=== PATIENT | male | born 1970 | race Caucasian/White ===

== ENCOUNTER 2019-08-14 11:50 | Emergency (ER) | payer MEDICARE ==
[2019-08-14] MEDS ORDERED: ONDANSETRON HCL 4 MG/2 ML VIAL ONE (12:21)
[2019-08-14] MEDS ORDERED: SODIUM CHLORIDE 0.9% 1000ML 1,000 ML IV ONE (12:21)
[2019-08-14] MEDS ORDERED: FAMOTIDINE/PF 20 MG/2 ML VIAL IV ONE (12:21)
[2019-08-14 12:53] LABS: BASOPHILS % (AUTO) 0.9 % (0.0-5.0); EOSINOPHILS % (AUTO) 1.3 % (0.0-8.0); HEMATOCRIT 41.6 % (42-54); LYMPHOCYTES % (AUTO) 30.1 % (21.0-51.0); MEAN CORPUSCULAR HEMOGLOBIN 31.1 pg (27.0-33.0); MEAN CORPUSCULAR HGB CONC 32.9 g/dL (32.0-36.0); MEAN CORPUSCULAR VOLUME 94.5 fL (79-99); MONOCYTES % (AUTO) 13.7 % (3.0-13.0); NEUTROPHILS % (AUTO) 53.6 % (40.0-77.0); PLATELET COUNT (AUTO) 221 K/uL (130-400); RED CELL DISTRIBUTION WIDTH 14.8 % (11.0-15.5); WHITE BLOOD COUNT (AUTO) 6.9 K/uL (4.8-10.8)
[2019-08-14 13:08] LABS: CREATININE 0.9 mg/dL (0.5-1.5)
[2019-08-14 13:12] LABS: ALBUMIN 3.5 g/dL (3.5-5.0); BILIRUBIN,TOTAL 0.4 mg/dL (0.2-1.0); TOTAL PROTEIN, SERUM 8.4 g/dL (6.0-8.3)
[2019-08-14] MEDS ORDERED: LIDOCAINE HCL 2% VISCOUS 15 ML UDCUP ONE ×2 (13:30→16:43)
[2019-08-14] MEDS ORDERED: IOHEXOL-350 75 ML VIAL IV ONE (14:36)
[2019-08-14] MEDS ORDERED: FLUCONAZOLE 100 MG TAB ONE (16:44)
[2019-08-22] MEDS ORDERED: PANT40TA25 PO (05:44)
== END 2019-08-14 17:52 | disposition home or self-care (01) ==
LOC: EDH 11:50
DX: B37.0 Candidal stomatitis (principal); B37.81 Candidal esophagitis; R11.10 Vomiting, unspecified; F32.9 Major depressive disorder, single episode, unspecified; K21.9 Gastro-esophageal reflux disease without esophagitis; Z88.1 Allergy status to other antibiotic agents; Z88.0 Allergy status to penicillin
CPT/HCPCS: 36415; 74177; 80053; 83690; 85025; 87804 ×2; 93005; 96361; 96374; 96375; 99285; J2405; J3490; J7030; Q9967

== ENCOUNTER 2019-08-21 14:51 | Inpatient (IN) | payer MEDICARE ==
[~2019-08-21] VITALS: Ht 165.1 cm; Wt 99.6 kg
[2019-08-21 15:23] LABS: BASOPHILS % (AUTO) 0.7 % (0.0-5.0); EOSINOPHILS % (AUTO) 0.8 % (0.0-8.0); LYMPHOCYTES % (AUTO) 26.5 % (21.0-51.0); MEAN CORPUSCULAR HEMOGLOBIN 31.1 pg (27.0-33.0); MEAN CORPUSCULAR VOLUME 91.3 fL (79-99); MONOCYTES % (AUTO) 7.3 % (3.0-13.0); NEUTROPHILS % (AUTO) 64.5 % (40.0-77.0); PLATELET COUNT (AUTO) 305 K/uL (130-400); RED CELL DISTRIBUTION WIDTH 14.8 % (11.0-15.5); WHITE BLOOD COUNT (AUTO) 8.7 K/uL (4.8-10.8)
[2019-08-21 15:38] LABS: CREATININE 0.9 mg/dL (0.5-1.5); POTASSIUM 3.8 mmol/L (3.5-5.1)
[2019-08-21 15:43] LABS: ALBUMIN 3.8 g/dL (3.5-5.0); BILIRUBIN,TOTAL 0.5 mg/dL (0.2-1.0); TOTAL PROTEIN, SERUM 7.9 g/dL (6.0-8.3)
[2019-08-21] MEDS ORDERED: ONDANSETRON HCL 4 MG/2 ML VIAL ONE ×2 (15:55→20:55)
[2019-08-21] MEDS ORDERED: SODIUM CHLORIDE 0.9% 1000ML 1,000 ML IV ONE (15:55)
[2019-08-21] MEDS ORDERED: HYDRALAZINE HCL 20 MG/ML VIAL IV PRN (17:15)
[2019-08-21] MEDS ORDERED: ACETAMINOPHEN 325 MG TAB PO PRN ×2 (17:15)
[2019-08-21] MEDS ORDERED: FLUCONAZOLE 200 MG/NS 100 ML 100 ML ONE (17:37)
[2019-08-21] MEDS ORDERED: 1/2 NORMAL SALINE 1,000 ML IV ONE (17:38)
[2019-08-21 18:50] VITALS: BP 130/73
[2019-08-21 20:15] LABS: PHOSPHORUS 3.1 mg/dL (2.5-4.9)
[2019-08-21] MEDS: FAMOTIDINE/PF 20 MG/2 ML VIAL IV SCH (20:57)
[2019-08-21] MEDS: LACTULOSE 20 GM/30 ML UDCUP PO SCH (20:57)
[2019-08-21] MEDS: 1/2 NORMAL SALINE 1,000 ML IV SCH (21:00)
[2019-08-22] VITALS (7 sets, daily range): BP systolic 121–141; BP diastolic 59–87
--- NOTE | 2019-08-22 01:00 | NUR ---
AWARE PT HAS BEEN HAVING VOMITING AND NAUSEA REGARDLESS OF ZOFRAN AND HAS HAD THIS ISSUE PER ER NOTES AND PROVIDER AND NURSE NILS FROM NURSING ASSISTED FOR THE LAST COUPLE OF WEEKS STATED NO KUB , INSTEAD DO A CT ABD/PELVIS W NO CONTRAST AND KEEP PT NPO
[2019-08-22] MEDS ORDERED: PROMETHAZINE HCL 25 MG/ML 1ML AMPULE IM PRN (04:15)
[2019-08-22] MEDS ORDERED: PRAV20TA4 PO (05:44)
[2019-08-22] MEDS ORDERED: MAGN400T53 PO (05:44)
[2019-08-22] MEDS ORDERED: DIPH25 PO (05:44)
[2019-08-22] MEDS ORDERED: QUET300T2 PO (05:44)
[2019-08-22] MEDS ORDERED: PANT40TA55 PO (05:44)
[2019-08-22] MEDS ORDERED: CARV12.511 PO (05:44)
[2019-08-22] MEDS ORDERED: MAGN400O17 PO (05:44)
[2019-08-22] MEDS ORDERED: ASPI-556 PO (05:44)
[2019-08-22] MEDS ORDERED: IBUP-2784 PO (05:44)
[2019-08-22] MEDS ORDERED: GUAI237L97 PO (05:44)
[2019-08-22] MEDS ORDERED: DEBROX AU (05:44)
[2019-08-22] MEDS ORDERED: LOPE2CAP PO (05:44)
[2019-08-22] MEDS ORDERED: BISM262T15 PO (05:44)
[2019-08-22] MEDS ORDERED: POTA20TA12 PO (05:44)
[2019-08-22] MEDS ORDERED: VALP250S4 PO (05:44)
[2019-08-22] MEDS ORDERED: HC1C1.5 TP (05:44)
[2019-08-22] MEDS ORDERED: PETR113O TP (05:44)
[2019-08-22] MEDS ORDERED: NEOM30OI18 TP (05:44)
[2019-08-22] MEDS ORDERED: PHEN177S29 PO (05:44)
[2019-08-22] MEDS ORDERED: METR-172 PO (05:44)
[2019-08-22] MEDS ORDERED: BENZ2TAB10 PO (05:44)
--- NOTE | 2019-08-22 08:55 | NUR ---
INDIO FLORES COORDINATED WITH NURSE NORRIS. Pt CURRENTLY NPO SECONDARY TO POSSIBLE OBSTRUCTION. COMMUNITY ADVOCATE WILL CONTINUE TO FOLLOW Pt TO EVALUATE WHEN Pt IS ABLE TO PARTICIPATE. Addendum: 08/22/[address] SYLVIA DURAND Amended: Links added.
[2019-08-22] MEDS: DIVALPROEX SODIUM 250 MG TABLET.DR PO SCH ×2 (08:57→20:07)
[2019-08-22] MEDS: CARVEDILOL 12.5 MG TABLET PO SCH ×2 (08:57→20:07)
[2019-08-22] MEDS: MAGNESIUM OXIDE 400 MG TABLET PO SCH (08:57)
[2019-08-22] MEDS: ASPIRIN 81 MG EC TAB PO SCH (08:58)
[2019-08-22] MEDS: ONDANSETRON HCL 4 MG/2 ML VIAL IVP PRN (09:29)
[2019-08-22] MEDS: FAMOTIDINE/PF 20 MG/2 ML VIAL IV SCH ×2 (09:29→21:00)
[2019-08-22] MEDS: LACTULOSE 20 GM/30 ML UDCUP PO SCH (09:29)
[2019-08-22] MEDS: 1/2 NORMAL SALINE 1,000 ML IV SCH (09:29)
[2019-08-22] MEDS: ENOXAPARIN SODIUM 30 MG/0.3 ML SQ SCH (09:29)
--- NOTE | 2019-08-22 11:50 | NUR ---
SOAP ENEMA #1 GIVEN. PATIENT TOLERATED WELL. WILL CONTINUE TO MONITOR CLOSELY.
[2019-08-22] MEDS: FLUCONAZOLE 200 MG/NS 100 ML 100 ML IV SCH (11:56)
--- NOTE | 2019-08-22 13:41 | NUR ---
RD NOTIFICATION Pt admitted with Intractable N/V, Stool impaction. Pt NPO pending CT of ABD/Pelvis Vs Lactulose/Enema treatments for fecal impaction. Pt is s/p SOAP enema x1. Pending ST analial. Recommend adv diet when medically feasible to General Heart Healthy,GI soft/Opal. RD to continue to monitor. Please notify as additional nutrition concerns arise. Thank you. Addendum: 08/22/19 at [address] Amended: Links added.
[2019-08-22] MEDS ORDERED: HYDROCORTISONE 1% 28.35 GM CREAM TP PRN (14:30)
[2019-08-22] MEDS ORDERED: DIPHENHYDRAMINE HCL 25 MG CAPSULE PO PRN (14:30)
--- NOTE | 2019-08-22 15:30 | NUR ---
PAGED DR ALLEN, WAITING CLEAT FEEDER BACK.
--- NOTE | 2019-08-22 16:13 | NUR ---
SOAP ENEMA #2 GIVEN. PATIENT IS PASSING A BROWNISH/LIZAMA LIQUID, PROBABLY FROM THE ENEMA. PT TOLERATED WELL. NO DISTRESS NOTED. CALL LIGHT WITHIN REACH.
[2019-08-22] MEDS: BENZTROPINE MESYLATE 0.5 MG TAB PO SCH (20:06)
[2019-08-22] MEDS: SIMVASTATIN 20 MG TABLET PO SCH (20:07)
[2019-08-22] MEDS: QUETIAPINE FUMARATE 100 MG TAB PO SCH (20:07)
[2019-08-23] VITALS (21 sets, daily range): BP systolic 107–154; BP diastolic 53–78
[2019-08-23 05:26] LABS: BASOPHILS % (AUTO) 0.9 % (0.0-5.0); EOSINOPHILS % (AUTO) 3.3 % (0.0-8.0); HEMATOCRIT 32.7 % (42-54); LYMPHOCYTES % (AUTO) 46.4 % (21.0-51.0); MEAN CORPUSCULAR HEMOGLOBIN 30.9 pg (27.0-33.0); MEAN CORPUSCULAR HGB CONC 33.6 g/dL (32.0-36.0); MEAN CORPUSCULAR VOLUME 91.9 fL (79-99); NEUTROPHILS % (AUTO) 40.2 % (40.0-77.0); PLATELET COUNT (AUTO) 206 K/uL (130-400); RED BLOOD CELL COUNT(AUTO) 3.56 MIL/uL (4.50-6.20); RED CELL DISTRIBUTION WIDTH 14.7 % (11.0-15.5); WHITE BLOOD COUNT (AUTO) 6.3 K/uL (4.8-10.8)
[2019-08-23 05:43] LABS: CREATININE 0.7 mg/dL (0.5-1.5)
[2019-08-23 05:47] LABS: POTASSIUM 2.9 mmol/L (3.5-5.1)
--- NOTE | 2019-08-23 06:10 | NUR ---
HYPOKALEMIA PT'S K AT 2.9. PAGED DR MCCRACKEN TO INFORM.
[2019-08-23] MEDS ORDERED: LIDOCAINE HCL-MPF 1% 2ML VIAL IV PRN (07:00)
[2019-08-23] MEDS ORDERED: POTASSIUM CHLORIDE 10% ELIXIR 20 MEQ/15 ML UDCUP PO PRN (07:00)
[2019-08-23] MEDS ORDERED: MAGNESIUM 2GM PREMIX 50ML 50 ML IV PRN (07:00)
[2019-08-23] MEDS ORDERED: POTASSIUM CHLORIDE 20 MEQ ERTAB PO PRN (07:00)
[2019-08-23] MEDS ORDERED: POTASSIUM CHLORIDE 20MEQ/100ML 100 ML IV PRN (07:00)
[2019-08-23] MEDS: BENZTROPINE MESYLATE 0.5 MG TAB PO SCH ×2 (09:00→20:48)
[2019-08-23] MEDS: ASPIRIN 81 MG EC TAB PO SCH (09:00)
[2019-08-23] MEDS: ENOXAPARIN SODIUM 30 MG/0.3 ML SQ SCH (09:00)
[2019-08-23] MEDS: FAMOTIDINE/PF 20 MG/2 ML VIAL IV SCH ×2 (09:00→20:48)
[2019-08-23] MEDS: CARVEDILOL 12.5 MG TABLET PO SCH ×2 (09:00→20:47)
[2019-08-23] MEDS: POTASSIUM CHLORIDE 20 MEQ ERTAB PO SCH (09:00)
[2019-08-23] MEDS: DIVALPROEX SODIUM 250 MG TABLET.DR PO SCH ×2 (09:00→20:47)
[2019-08-23] MEDS: MAGNESIUM OXIDE 400 MG TABLET PO SCH (09:00)
[2019-08-23] MEDS: FLUCONAZOLE 200 MG/NS 100 ML 100 ML IV SCH (09:08)
[2019-08-23] MEDS: DEXTROSE 5 % AND 0.9 % NACL 1,000 ML IV SCH ×2 (09:08→21:26)
[2019-08-23] MEDS: POTASSIUM CHLORIDE 20MEQ/100ML 100 ML IV PRN ×3 (09:09→23:52)
[2019-08-23] MEDS: LIDOCAINE HCL-MPF 1% 2ML VIAL IV PRN ×2 (09:09→23:53)
--- NOTE | 2019-08-23 10:05 | NUR ---
INDIO ANTOINE COMPLETED Pt CONTINUES NPO PER NURSE GIRALDO VENETIAN BLIND WASHER WILL CONTINUE TO FOLLOW Pt TO EVALUATE. Addendum: 08/23/[address] SYLVIA DURAND Amended: Links added.
[2019-08-23] MEDS ORDERED: PROPOFOL 10 MG/ML 20ML VIAL IV ONE (10:56)
--- NOTE | 2019-08-23 12:30 | NUR ---
EMESIS X1 I TRIED TO INSTRUCT PATIENT ON CALLING ME WHEN HE FEELS NAUSEATED BUT PATIENT IS UNABLE TO. HIS DOOR IS OPEN AND I HEARD HIM THROW UP SO I WENT IN THE ROOM TO HELP HIM WITH THE EMESIS BAG AND THEN TO CLEAN HIM UP. HE DENIES ANY ABD PAIN BUT I'M UNABLE TO TELL DUE TO HIS DX. WILL CONTINUE TO MONITOR CLOSELY.
[2019-08-23] MEDS: ONDANSETRON HCL 4 MG/2 ML VIAL IVP PRN ×2 (12:42→21:20)
[2019-08-23] MEDS: METOCLOPRAMIDE 10 MG/2 ML VIAL IVP PRN ×2 (12:42→23:52)
--- NOTE | 2019-08-23 12:55 | NUR ---
PATIENT CAME BACK FROM THE EGD. RESULTS REVIEWED BY DR CONNELL. PATIENT WILL START ON CLEAR LIQUIDS AFTER BEING EVALUATED BY SPEECH THERAPIST.
--- NOTE | 2019-08-23 14:40 | NUR ---
NUTRITION EDUCATION Pt with AMS/Mental Retardation as per RN. High Fiber Nutrition Therapy handout placed in Pt chart. RD recommends gradually increase Pt fiber intake by including high or moderate fiber food(s) with each meal, increasing water intake. Pt with frequent aversion to foods, per RN; trial of high fiber smoothies or fiber supplement to prevent reoccurrence of constipation. Please notify as additional nutrition concerns arise. Thank you. Addendum: 08/23/19 at [address] Amended: Links added.
--- NOTE | 2019-08-23 17:06 | NUR ---
SPOKE WITH [facility]- PATIENT HAS LIVES THERE SINCE FEB 2019, HAS MOBILITY ISSUES, USES A WHEELCHAIR, NEEDS ASSISTANCE WITH ALL ADLS- WHEN DISCHARGE, [facility] ST[facility] CAN PROVIDE TRANSPORT- CALL THEM, THEY WILL BRING PATIENTS WHEEL CHAIR AND LIFT VAN. WILL PLACE INFO IN CHART FOR PRIMARY RN Addendum: 08/23/19 at 1709 by GHAZAL CHI RN CM Amended: Links added.
--- NOTE | 2019-08-23 17:09 | NUR ---
DCP TO [facility] WITH [facility] Addendum: 08/23/19 at 1709 by GHAZAL CHI RN CM Amended: Links added.
[2019-08-23] MEDS: SIMVASTATIN 20 MG TABLET PO SCH (20:48)
[2019-08-23] MEDS: QUETIAPINE FUMARATE 100 MG TAB PO SCH (21:06)
[2019-08-24 03:33] VITALS: BP 142/74
[2019-08-24] MEDS: ONDANSETRON HCL 4 MG/2 ML VIAL IVP PRN (04:36)
[2019-08-24 04:46] LABS: CREATININE 0.5 mg/dL (0.5-1.5); MAGNESIUM 2.3 mg/dL (1.80-2.40); POTASSIUM 3.9 mmol/L (3.5-5.1)
[2019-08-24 08:00] VITALS: BP 118/54
[2019-08-24] MEDS ORDERED: ONDANSETRON HCL 4 MG/2 ML VIAL IVP SCH (08:15)
[2019-08-24] MEDS ORDERED: DOCU-116 PO (08:23)
[2019-08-24] MEDS: ENOXAPARIN SODIUM 30 MG/0.3 ML SQ SCH (09:00)
[2019-08-24] MEDS: BENZTROPINE MESYLATE 0.5 MG TAB PO SCH ×2 (09:00→20:52)
[2019-08-24] MEDS: DIVALPROEX SODIUM 250 MG TABLET.DR PO SCH ×2 (09:00→20:52)
[2019-08-24] MEDS: ASPIRIN 81 MG EC TAB PO SCH (09:00)
[2019-08-24] MEDS: PANTOPRAZOLE SODIUM 40 MG TABLET.DR PO SCH (09:00)
[2019-08-24] MEDS: MAGNESIUM OXIDE 400 MG TABLET PO SCH (09:00)
[2019-08-24] MEDS: POTASSIUM CHLORIDE 20 MEQ ERTAB PO SCH (09:00)
[2019-08-24] MEDS: CARVEDILOL 12.5 MG TABLET PO SCH ×2 (09:00→20:52)
--- NOTE | 2019-08-24 09:40 | NUR ---
DYSPHAGIA EVAL ATTEMPTED Pt AWAKE AND ORIENTED TO PERSON. Pt REFUSING TO COOPERATE WITH P.O. TRIALS FOR SWALLOW EVALUATION GIVEN MAX CUES AND SEVERAL OPTIONS (NO P.O. WAS GIVEN AT THIS TIME). PRODUCTION SUPV SPOKE WITH MEERA FROM [facility] AT [phone] TO OBTAIN INFORMATION. Pt WAS ON PUREED AND NECTAR THICK LIQUIDS AT [facility] AND TOLERATING IT WELL. HOWEVER, MEERA SAID THAT Pt WAS ALSO REFUSING P.O. INTAKE THE LAST COUPLE OF DAYS WITH THEM. PRODUCTION SUPV WILL FOLLOW Pt AND EVALUATE WHEN Pt IS ABLE TO PARTICIPATE. Addendum: 08/24/[address] SYLVIA DURAND Amended: Links added.
[2019-08-24] MEDS: DEXTROSE 5 % AND 0.9 % NACL 1,000 ML IV SCH ×3 (10:40→23:26)
[2019-08-24 11:00] VITALS: BP 120/82
[2019-08-24] MEDS: FAMOTIDINE/PF 20 MG/2 ML VIAL IV SCH ×2 (11:22→20:51)
[2019-08-24] MEDS: FLUCONAZOLE 200 MG/NS 100 ML 100 ML IV SCH (11:22)
[2019-08-24] MEDS: METOCLOPRAMIDE 10 MG/2 ML VIAL IVP PRN ×2 (12:56→21:02)
--- NOTE | 2019-08-24 14:27 | NUR ---
RD UPDATE RD NOTIFICATION FOR PPN RECOMMENDATIONS. RECOMMEND CLINIMIX E 4.25/5 @85MLS/HR TO PROVIDE 87GM PROTEIN, [id number]. PT CONTINUES WITH GI SOFT/BLAND DIET ORDER. PT WITH AMS. RECOMMEND APPETITE STIMULANT. RD TO CONTINUE TO MONITOR.
[2019-08-24 16:00] VITALS: BP 128/73
--- NOTE | 2019-08-24 17:09 | NUR ---
PLEASE HAVE [facility] STAFF HELP WITH PT FEEDING IF NEEDED--WHEN NAUSEA CONTROLLED DISCUSSED PT WITH DR. CONNELL TODAY PT DECLINED TO EAT FOR SPEECH THERPAY THIS MONINR- MAYBE SECOND TO UNFMAILIAR STAFF? DISCUSSED WITH NILS MONTE AT [facility]- THEY ARE WILLING OT HAVE STAFF COME OT FEED PATIENT IF NEEDED AFTER THIS WAS DISCUSSED, PATIENT WAS NAUSEATED AGAIN- STAFF COMING TO HELP FEED IS NOW ON HOLD UNTIL NAUSEA IS CONTORLLED. IF REFUSAL TO EAT PERSISTS AFTER NAUSEA/VOMITING STOPS, STAFF CAN BE ASKED TO ASSIST WITH ANY CARE PROBLEMS THAT OCCUR. PLAN IS RETURN TO [facility] WITH HIGH FIBER DIET, BOWEL REGIME NAUSEA/VOMITING RESOLVES, AND GOOD APPETITS. ALL DISCUSSED WITH [facility] STAFF. [facility] STAFF TO PROVIDE TRANSPORT ON DISCHARGE Addendum: 08/24/19 at 1714 by GHAZAL CHI RN CM Amended: Links added.
[2019-08-24] MEDS ORDERED: M.V.I. IV [ADULT] 10 ML in CLINIMIX E 4.25%-5% SOLUTION 2,000 ML IV SCH (18:00)
[2019-08-24 20:10] VITALS: BP 95/49
[2019-08-24] MEDS: SIMVASTATIN 20 MG TABLET PO SCH (20:52)
[2019-08-24] MEDS: QUETIAPINE FUMARATE 100 MG TAB PO SCH (20:52)
--- NOTE | 2019-08-24 20:55 | NUR ---
MEDS SHIFT ASSESSMENT DONE, PLEASE REFER TO CHART. DUE MEDS GIVEN, IV MEDS ADMINISTERED WHILE PO MEDS CRUSHED AND TRIED TO GIVE TO PT BUT REFUSING AT THIS TIME. REGLAN IV ADMINISTERED FOR PREVENTION OF EMESIS BUT PT STILL REFUSES MEDS. WILL TRY TO GIVE ONCE PT IS RELAXED AND CALM. KEPT COMFORTABLE WITH HOB ELEVATED. WILL MONITOR CLOSELY. Addendum: 08/24/19 at 2203 by WILLIAM DELANEY RN RN Amended: Links added.
--- NOTE | 2019-08-24 23:28 | NUR ---
TRY TRIED SEVERAL TIMES TO GIVE CRUSHED MEDS WITH APPLE SAUCE BUT REFUSED. PT WILL NOT OPEN HIS MOUTH FOR MEDS AND KEEPS REPEATING NO.
[2019-08-24 23:44] VITALS: BP 113/68
--- NOTE | 2019-08-25 02:00 | NUR ---
ROUNDS PT FAIRLY ASLEEP WITH RESPIRATIONS EVEN AND UNLABORED. NO DISTRESS NOTED. KEPT RESTED AND COMFORTABLE. WILL MONITOR PT.
[2019-08-25 03:38] VITALS: BP 116/60
--- NOTE | 2019-08-25 04:12 | NUR ---
[facility]ATHE PCP IN AND GAVE PT A BED BATH, TOLERATED ACTIVITY WELL. RE-POSITIONED COMFORTABLY IN BED WITH HOB ELEVATED. WILL MONITOR PT.
[2019-08-25 05:22] LABS: BASOPHILS % (AUTO) 0.7 % (0.0-5.0); EOSINOPHILS % (AUTO) 2.4 % (0.0-8.0); HEMATOCRIT 35.4 % (42-54); LYMPHOCYTES % (AUTO) 38.3 % (21.0-51.0); MEAN CORPUSCULAR HEMOGLOBIN 31.1 pg (27.0-33.0); MEAN CORPUSCULAR HGB CONC 33.9 g/dL (32.0-36.0); MEAN CORPUSCULAR VOLUME 91.7 fL (79-99); NEUTROPHILS % (AUTO) 49.3 % (40.0-77.0); PLATELET COUNT (AUTO) 226 K/uL (130-400); RED BLOOD CELL COUNT(AUTO) 3.86 MIL/uL (4.50-6.20); RED CELL DISTRIBUTION WIDTH 15.1 % (11.0-15.5)
[2019-08-25 05:41] LABS: CREATININE 0.6 mg/dL (0.5-1.5); MAGNESIUM 2.1 mg/dL (1.80-2.40); PHOSPHORUS 3.4 mg/dL (2.5-4.9); POTASSIUM 3.4 mmol/L (3.5-5.1)
[2019-08-25] MEDS: LIDOCAINE HCL-MPF 1% 2ML VIAL IV PRN (06:10)
[2019-08-25] MEDS: POTASSIUM CHLORIDE 20MEQ/100ML 100 ML IV PRN (06:10)
[2019-08-25 08:00] VITALS: BP 116/62
[2019-08-25] MEDS: POTASSIUM CHLORIDE 20 MEQ ERTAB PO SCH (09:00)
[2019-08-25] MEDS: PANTOPRAZOLE SODIUM 40 MG TABLET.DR PO SCH (09:00)
[2019-08-25] MEDS: ASPIRIN 81 MG EC TAB PO SCH (09:00)
[2019-08-25] MEDS: MAGNESIUM OXIDE 400 MG TABLET PO SCH (09:00)
[2019-08-25] MEDS: CARVEDILOL 12.5 MG TABLET PO SCH ×2 (09:00→20:41)
--- NOTE | 2019-08-25 09:11 | NUR ---
RECORDS CALL TO MICHELINE PEREIRA- ASKED FOR RECORDS FROM [facility] IN JUNE- WHAT WORK UP DONW, ETC. STAFF STATES WOULD CALL [facility] / TO CONTACT THIS CM. PT UNABLE TO SIGN FOR RELEASE OF RECORDS. WILL ATTEMPT TO OBTIAN RECORDS PRIOR TO NEUROSURGERY CONSULT - POSS TUESDAY
[2019-08-25] MEDS: FAMOTIDINE/PF 20 MG/2 ML VIAL IV SCH ×2 (10:00→20:41)
[2019-08-25] MEDS: ENOXAPARIN SODIUM 30 MG/0.3 ML SQ SCH (10:00)
[2019-08-25] MEDS: METOCLOPRAMIDE 10 MG/2 ML VIAL IVP PRN ×2 (10:00→16:33)
[2019-08-25] MEDS: BENZTROPINE MESYLATE 0.5 MG TAB PO SCH ×2 (10:01→20:40)
[2019-08-25] MEDS: DIVALPROEX SODIUM 250 MG TABLET.DR PO SCH ×2 (10:01→20:40)
[2019-08-25 11:00] VITALS: BP 126/77
--- NOTE | 2019-08-25 15:24 | NUR ---
[facility] STATES THAT THEY WILL TRY TO GET RECORDS FROM [facility] RE LAST ADMIT IN JUNE- WILL PROBABLY NOT BE AVAILABLE UNTIL TUESDAY CM TO FOLLOW UP AND ASSIST NEEDED
[2019-08-25] MEDS ORDERED: GLYCERIN ADULT SUPP.RECT RC PRN (15:30)
[2019-08-25 16:00] VITALS: BP 129/71
[2019-08-25] MEDS ORDERED: BISACODYL 10 MG SUPP.RECT RC ONE (16:32)
[2019-08-25] MEDS: DEXTROSE 5 % AND 0.9 % NACL 1,000 ML IV SCH (16:35)
[2019-08-25] MEDS ORDERED: M.V.I. IV [ADULT] 10 ML in CLINIMIX E 4.25%-5% SOLUTION 2,000 ML IV ONE (18:00)
[2019-08-25 20:00] VITALS: BP 119/81
[2019-08-25] MEDS: SIMVASTATIN 20 MG TABLET PO SCH (20:39)
[2019-08-25] MEDS: QUETIAPINE FUMARATE 100 MG TAB PO SCH (20:40)
[2019-08-26] VITALS: BP 107/69
[2019-08-26 04:00] VITALS: BP 118/61
[2019-08-26 05:21] LABS: BASOPHILS % (AUTO) 0.6 % (0.0-5.0); EOSINOPHILS % (AUTO) 4.9 % (0.0-8.0); HEMATOCRIT 35.8 % (42-54); LYMPHOCYTES % (AUTO) 53.6 % (21.0-51.0); MEAN CORPUSCULAR HEMOGLOBIN 30.7 pg (27.0-33.0); MEAN CORPUSCULAR HGB CONC 33.2 g/dL (32.0-36.0); MEAN CORPUSCULAR VOLUME 92.3 fL (79-99); MONOCYTES % (AUTO) 10.3 % (3.0-13.0); NEUTROPHILS % (AUTO) 30.3 % (40.0-77.0); NUCLEATED RED BLOOD CELLS 0.3 % (0.0-0.19); PLATELET COUNT (AUTO) 198 K/uL (130-400); RED BLOOD CELL COUNT(AUTO) 3.88 MIL/uL (4.50-6.20); RED CELL DISTRIBUTION WIDTH 15.7 % (11.0-15.5); WHITE BLOOD COUNT (AUTO) 6.3 K/uL (4.8-10.8)
[2019-08-26 05:26] LABS: CREATININE 0.6 mg/dL (0.5-1.5)
[2019-08-26] MEDS: DEXTROSE 5 % AND 0.9 % NACL 1,000 ML IV SCH (07:45)
[2019-08-26 08:00] VITALS: BP 130/60
[2019-08-26] MEDS: FAMOTIDINE/PF 20 MG/2 ML VIAL IV SCH ×2 (10:03→21:00)
[2019-08-26] MEDS: ENOXAPARIN SODIUM 30 MG/0.3 ML SQ SCH (10:04)
[2019-08-26] MEDS: MAGNESIUM OXIDE 400 MG TABLET PO SCH (10:07)
[2019-08-26] MEDS: DIVALPROEX SODIUM 250 MG TABLET.DR PO SCH ×2 (10:07→21:00)
[2019-08-26] MEDS: CARVEDILOL 12.5 MG TABLET PO SCH ×2 (10:07→21:00)
[2019-08-26] MEDS: ASPIRIN 81 MG EC TAB PO SCH (10:08)
[2019-08-26] MEDS: POTASSIUM CHLORIDE 20 MEQ ERTAB PO SCH (10:08)
[2019-08-26] MEDS: PANTOPRAZOLE SODIUM 40 MG TABLET.DR PO SCH (10:08)
[2019-08-26] MEDS: BENZTROPINE MESYLATE 0.5 MG TAB PO SCH ×2 (10:08→21:00)
--- NOTE | 2019-08-26 10:19 | NUR ---
[facility] ATTEMPTED TO ADMINISTER PO MEDICATIONS TO PATIENT AFTER CRUSHING AND MIXING WITH APPLESAUCE. PATIENT REFUSED TO TAKE MEDICATIONS BY MOVING HEAD SIDE TO SIDE AWAY TO AVOID TAKING. WILL ATTEMPT TO ADMINISTER PO MEDICATIONS AT A LATER TIME. Addendum: 08/26/19 at 1123 by TAHIR FRITZ RN RN 1115 AM: ATTEMPTED AGAIN TO ADMINISTER PO MEDICATIONS, PATIENT AGAIN REFUSED TO TAKE AT THIS TIME.
[2019-08-26] MEDS ORDERED: BISACODYL 10 MG SUPP.RECT RC SCH (10:45)
[2019-08-26 11:00] VITALS: BP 118/69
--- NOTE | 2019-08-26 14:15 | NUR ---
cm note called by nurse for orders for dc to [facility], states needs EMS..spoke to [facility] at [facility] ([phone]) and verified their [address] [place] and states that hospital will need to call alo nurse for report at [phone]. called but no answer. also call made to jose alejandro rashid computer programmer chief [phone]. Jose Alejandro states that would like to have pt transferred to their facility before 3pm today, informed we are still pending for him to have bowel movement, states prefers pt to be transferred tomorrow early. updated primary nurse Anthony.
[2019-08-26 16:00] VITALS: BP 104/57
[2019-08-26] MEDS ORDERED: M.V.I. IV [ADULT] 10 ML in CLINIMIX E 4.25%-5% SOLUTION 2,000 ML IV ONE (17:00)
[2019-08-26 20:00] VITALS: BP 118/69
[2019-08-26] MEDS: QUETIAPINE FUMARATE 100 MG TAB PO SCH (21:00)
[2019-08-26] MEDS: SIMVASTATIN 20 MG TABLET PO SCH (21:00)
[2019-08-27] VITALS: BP 111/54
[2019-08-27] MEDS: DEXTROSE 5 % AND 0.9 % NACL 1,000 ML IV SCH (00:37)
[2019-08-27 04:00] VITALS: BP 119/63
[2019-08-27 05:48] LABS: BASOPHILS % (AUTO) 0.9 % (0.0-5.0); EOSINOPHILS % (AUTO) 5.7 % (0.0-8.0); LYMPHOCYTES % (AUTO) 47.8 % (21.0-51.0); MEAN CORPUSCULAR HGB CONC 32.7 g/dL (32.0-36.0); MEAN CORPUSCULAR VOLUME 94.8 fL (79-99); MONOCYTES % (AUTO) 10.4 % (3.0-13.0); NEUTROPHILS % (AUTO) 34.7 % (40.0-77.0); PLATELET COUNT (AUTO) 194 K/uL (130-400); RED BLOOD CELL COUNT(AUTO) 3.48 MIL/uL (4.50-6.20); RED CELL DISTRIBUTION WIDTH 16.2 % (11.0-15.5); WHITE BLOOD COUNT (AUTO) 6.6 K/uL (4.8-10.8)
[2019-08-27 06:08] LABS: CREATININE 0.7 mg/dL (0.5-1.5); POTASSIUM 3.9 mmol/L (3.5-5.1)
[2019-08-27 07:32] VITALS: BP 126/80
[2019-08-27] MEDS: BENZTROPINE MESYLATE 0.5 MG TAB PO SCH (09:49)
[2019-08-27] MEDS: DIVALPROEX SODIUM 250 MG TABLET.DR PO SCH (09:49)
[2019-08-27] MEDS: MAGNESIUM OXIDE 400 MG TABLET PO SCH (09:49)
[2019-08-27] MEDS: ASPIRIN 81 MG EC TAB PO SCH (09:49)
[2019-08-27] MEDS: POTASSIUM CHLORIDE 20 MEQ ERTAB PO SCH (09:50)
[2019-08-27] MEDS: FAMOTIDINE/PF 20 MG/2 ML VIAL IV SCH (09:51)
[2019-08-27] MEDS: CARVEDILOL 12.5 MG TABLET PO SCH (09:51)
[2019-08-27] MEDS: PANTOPRAZOLE SODIUM 40 MG TABLET.DR PO SCH (09:51)
[2019-08-27] MEDS: ENOXAPARIN SODIUM 30 MG/0.3 ML SQ SCH (09:52)
[2019-08-27 10:38] VITALS: BP 131/62
[2019-08-27] MEDS ORDERED: LACTULOSE 20 GM/30 ML UDCUP PO SCH (11:00)
--- NOTE | 2019-08-27 12:19 | NUR ---
[facility] REQUEST FOR EMS TRANSPORT FOR DC TODAY , FORMS MADE AND FAXED, CHARGE NURSE AWARE Addendum: 08/27/19 at 1220 by GHAZAL CHI RN CM Amended: Links added.
--- NOTE | 2019-08-27 13:02 | NUR ---
RD FOLLOW UP Pt with intermittent fair PO as per RN. Pt slept through breakfast today. No report of GI distress since 08/25/19, as per EMR. Discharge pending BM movement, per EMR. Recommend continue PPN @85mls/hr ( 87gm Protein, 6[address] to continue to monitor. Please notify as additional nutrition concerns arise. Thank you. Addendum: 08/27/19 at [address] Amended: Links added.
--- NOTE | 2019-08-27 15:58 | NUR ---
PT PENDING EMS TRANSFER TO [facility] REPORT GIVEN TO FELICIANO WRAY FROM [facility]. AWARE OF THE FOLLOWING INSTRUCTIONS. SUCH ; FOLLOW UP WITH YOUR PRIMARY DOCTOR IN 2-4 DAYS FOR TRANSITION OF CARE. FOLLOW UP WITH DR. STEELE NEUROLOGIST FOR HYDROCEPHALUS CONDITION on 09/07/19 At 0945. CALL PHONE; ([phone]) If unable to attend appointment. FOLLOW UP WITH DR. MERON ALLEN IN 1-2 WEEKS. CALL TO SET UP AN APPOINTMENT AT PHONE NUMBER [phone]. CALL [phone] IF THE FOLLOWING SYMPTOMS ARE PRESENT SUCH CONFUSION, WEAKNESS TO ONE SIDE, SLURRED SPEECH, SEVERE HEADACHES. NAUSEA VOMITING. IV OUT INTACT, NO BLEEDING, NO DISTRESS, HAD LARGE BM PRIOR TO DISCHARGE AFTER GIVING FLEETS ENEMA. NO TELE.
--- NOTE | 2019-08-27 16:52 | NUR ---
PT BEING TRANSFERRED BY EMS PATIENT AWAKE AND ALERT, NO DISTRESS. NO IVS NO TELE.
== END 2019-08-27 17:10 | disposition home or self-care (01) | DRG 392 ==
LOC: EDH 14:51 → EDHIP 17:03 → OBSVTOIN 17:03 → 3AH 18:24
PROVIDERS: ADMIT Internal Medicine; ATTEND Internal Medicine
PROC: 0DB68ZX Excision of Stomach, Via Natural or Artificial Opening Endoscopic, Diagnostic (ICD-10-PCS; principal; 2019-08-23)
DX: K29.70 Gastritis, unspecified, without bleeding (principal); G91.0 Communicating hydrocephalus; K56.41 Fecal impaction; I10 Essential (primary) hypertension; K21.9 Gastro-esophageal reflux disease without esophagitis; F31.9 Bipolar disorder, unspecified; F79 Unspecified intellectual disabilities; R33.9 Retention of urine, unspecified; Z88.0 Allergy status to penicillin; Z88.8 Allergy status to other drugs, medicaments and biological substances
CPT/HCPCS: 36415; 43239; 70450; 71045; 74021; 74176; 80048; 80053; 82150; 83690; 83735; 84100; 84132; 84145; 85025; 86140; 88305; 88342; 93005; 97039; A4606; G0378; J1450; J1650; J2405; J2704; J2765; J3475; J3480; J3490; J7030; J7042

== ENCOUNTER 2020-06-24 08:49 | Observation (INO) | payer MEDICARE ==
[~2020-06-24] VITALS: Ht 157.5 cm; Wt 82.9 kg
[~2020-06-24 08:49] MED LIST: ASPI-556 PO; BENZ2TAB10 PO; CARV12.511 PO; DEBROX AU; DIPH25 PO; DOCU-116 PO; HC1C1.5 TP; IBUP-2784 PO; MAGN400O17 PO; MAGN400T53 PO; NEOM30OI18 TP; PETR113O TP; PHEN177S29 PO; POTA20TA12 PO; PRAV20TA4 PO; QUET300T2 PO; VALP250S4 PO
[2020-06-24 09:10] LABS: APPEARANCE,URINE Clear (CLEAR); BASOPHILS % (AUTO) 0.2 % (0.0-5.0); BILIRUBIN,URINE Negative (NEGATIVE); COLOR,URINE Yellow (YELLOW); EOSINOPHILS % (AUTO) 0.3 % (0.0-8.0); GLUCOSE, URINE (UA) Negative (NEGATIVE); HEMATOCRIT 43.2 % (42-54); KETONES,URINE Trace mg/dL (NEGATIVE); LEUKOCYTE ESTERASE ,URINE Trace (NEGATIVE); LYMPHOCYTES % (AUTO) 31.1 % (21.0-51.0); MEAN CORPUSCULAR HGB CONC 32.4 g/dL (32.0-36.0); MEAN CORPUSCULAR VOLUME 98.6 fL (79-99); NEUTROPHILS % (AUTO) 55.7 % (40.0-77.0); NITRATE,URINE Negative (NEGATIVE); OCCULT BLOOD,URINE Negative (NEGATIVE); PH,URINE 7.5 (5.0-8.0); PLATELET COUNT (AUTO) 122 K/uL (130-400); PROTEIN,URINE Negative (NEGATIVE); RED BLOOD CELL COUNT(AUTO) 4.38 MIL/uL (4.50-6.20); RED CELL DISTRIBUTION WIDTH 13.6 % (11.0-15.5); WHITE BLOOD COUNT (AUTO) 5.9 K/uL (4.8-10.8)
[2020-06-24 09:18] LABS: INR 1.04 (0.85-1.15); PROTHROMBIN TIME 11.3 SEC (9.6-11.6)
[2020-06-24 09:19] LABS: PARTIAL THROMBOPLASTIN TIME 26.5 SEC (26.3-35.5)
[2020-06-24 09:23] LABS: BILIRUBIN,TOTAL 0.3 mg/dL (0.2-1.0); CREATININE 1.1 mg/dL (0.5-1.5); POTASSIUM 4.7 mmol/L (3.5-5.1); TOTAL PROTEIN, SERUM 7.3 g/dL (6.0-8.3)
[2020-06-24 09:50] LABS: BACTERIA,URINE Rare /HPF (None Seen); RBC,URINE 0-1 /HPF (0-1); SQUAMOUS EPITHELIAL CELL,UR Rare /HPF (0-2); WBC,URINE 0-1 /HPF (0-1)
[2020-06-24] MEDS: SODIUM CHLORIDE 0.9% 1000ML 1,000 ML IV SCH ×2 (12:30→21:52)
[2020-06-24] MEDS ORDERED: LACTULOSE 20 GM/30 ML UDCUP PO PRN (12:30)
[2020-06-24] MEDS ORDERED: ONDANSETRON HCL 4 MG/2 ML VIAL IV PRN (12:30)
[2020-06-24] MEDS ORDERED: PHARMACY COMMUNICATION MISC SCH (12:30)
[2020-06-24] MEDS ORDERED: ACETAMINOPHEN 325 MG TAB PO PRN ×2 (12:30)
[2020-06-24] MEDS ORDERED: LACTULOSE 20 GM/30 ML UDCUP PR SCH (12:45)
[2020-06-24] MEDS ORDERED: SODIUM CHLORIDE 0.9% 1000ML 1,000 ML IV ONE (13:27)
[2020-06-24] MEDS ORDERED: GADODIAMIDE 10 MMOL/20 ML VIAL IV ONE (14:09)
[2020-06-24 14:57] LABS: AMPHET/METH SCREEN,URINE NEGATIVE (NEGATIVE); BARBITURATE SCREEN, URINE NEGATIVE (NEGATIVE); BENZODIAZEPINES SCREEN,URINE NEGATIVE (NEGATIVE); CANNABINOID SCREEN,URINE NEGATIVE (NEGATIVE); COCAINE SCREEN,URINE NEGATIVE (NEGATIVE); OPIATE SCREEN,URINE NEGATIVE (NEGATIVE); PHENCYCLIDINE SCREEN,URINE NEGATIVE (NEGATIVE)
[2020-06-24 18:13] VITALS: BP 134/65
[2020-06-24 19:54] VITALS: BP 129/86
[2020-06-24] MEDS ORDERED: CLOT15CR23 TP (20:45)
[2020-06-24] MEDS ORDERED: PANT40TA54 PO (20:45)
[2020-06-24] MEDS: FAMOTIDINE/PF 20 MG/2 ML VIAL IV SCH (21:52)
[2020-06-25 00:24] VITALS: BP 121/74
[2020-06-25 04:26] LABS: BASOPHILS % (AUTO) 0.4 % (0.0-5.0); EOSINOPHILS % (AUTO) 1.2 % (0.0-8.0); HEMATOCRIT 39.8 % (42-54); LYMPHOCYTES % (AUTO) 42.6 % (21.0-51.0); MEAN CORPUSCULAR HEMOGLOBIN 32.2 pg (27.0-33.0); MEAN CORPUSCULAR HGB CONC 32.9 g/dL (32.0-36.0); MEAN CORPUSCULAR VOLUME 97.8 fL (79-99); MONOCYTES % (AUTO) 11.4 % (3.0-13.0); PLATELET COUNT (AUTO) 134 K/uL (130-400); RED BLOOD CELL COUNT(AUTO) 4.07 MIL/uL (4.50-6.20); RED CELL DISTRIBUTION WIDTH 13.5 % (11.0-15.5)
[2020-06-25 04:32] VITALS: BP 92/58
[2020-06-25 04:57] LABS: CREATININE 0.9 mg/dL (0.5-1.5); POTASSIUM 4.3 mmol/L (3.5-5.1)
[2020-06-25 07:00] VITALS: BP 119/62
[2020-06-25] MEDS: SODIUM CHLORIDE 0.9% 1000ML 1,000 ML IV SCH ×2 (09:24→09:28)
[2020-06-25] MEDS: FAMOTIDINE/PF 20 MG/2 ML VIAL IV SCH ×2 (09:25→21:24)
[2020-06-25] MEDS: ENOXAPARIN SODIUM 40 MG/0.4 ML SYRINGE SQ SCH (09:25)
[2020-06-25] MEDS: CLOTRIMAZOLE 30 GM CREAM.GM. TP SCH (09:52)
[2020-06-25] MEDS: CARVEDILOL 12.5 MG TABLET PO SCH ×2 (10:10→21:24)
[2020-06-25 11:00] VITALS: BP 111/63
[2020-06-25 15:00] VITALS: BP 127/79
[2020-06-25 19:40] VITALS: BP 135/84
[2020-06-25] MEDS: SIMVASTATIN 20 MG TABLET PO SCH (21:23)
[2020-06-26] VITALS (7 sets, daily range): BP systolic 102–154; BP diastolic 51–75
[2020-06-26] MEDS: SODIUM CHLORIDE 0.9% 1000ML 1,000 ML IV SCH (04:18)
[2020-06-26 05:33] LABS: BASOPHILS % (AUTO) 0.4 % (0.0-5.0); HEMATOCRIT 38.6 % (42-54); LYMPHOCYTES % (AUTO) 41.1 % (21.0-51.0); MEAN CORPUSCULAR HEMOGLOBIN 32.3 pg (27.0-33.0); MEAN CORPUSCULAR HGB CONC 33.4 g/dL (32.0-36.0); MEAN CORPUSCULAR VOLUME 96.7 fL (79-99); MONOCYTES % (AUTO) 15.9 % (3.0-13.0); PLATELET COUNT (AUTO) 125 K/uL (130-400); RED BLOOD CELL COUNT(AUTO) 3.99 MIL/uL (4.50-6.20); RED CELL DISTRIBUTION WIDTH 13.5 % (11.0-15.5); WHITE BLOOD COUNT (AUTO) 4.8 K/uL (4.8-10.8)
[2020-06-26 05:43] LABS: POTASSIUM 4.2 mmol/L (3.5-5.1)
[2020-06-26] MEDS: CLOTRIMAZOLE 30 GM CREAM.GM. TP SCH (08:39)
[2020-06-26] MEDS: ENOXAPARIN SODIUM 40 MG/0.4 ML SYRINGE SQ SCH (08:39)
[2020-06-26] MEDS: CARVEDILOL 12.5 MG TABLET PO SCH ×2 (08:41→20:07)
[2020-06-26] MEDS: FAMOTIDINE/PF 20 MG/2 ML VIAL IV SCH ×2 (08:41→20:07)
[2020-06-26] MEDS ORDERED: ASPIRIN 81 MG EC TAB PO SCH (09:00)
[2020-06-26] MEDS: SIMVASTATIN 20 MG TABLET PO SCH (20:06)
== END 2020-06-26 20:33 | disposition home or self-care (01) ==
LOC: EDH 08:49 → EDHIP 12:24 → 4DH 17:55
PROVIDERS: ADMIT Internal Medicine; ATTEND Internal Medicine
DX: G93.41 Metabolic encephalopathy (principal); Z20.822 Contact with and (suspected) exposure to COVID-19; R41.82 Altered mental status, unspecified; K72.90 Hepatic failure, unspecified without coma; E72.20 Disorder of urea cycle metabolism, unspecified; F31.9 Bipolar disorder, unspecified; H70.91 Unspecified mastoiditis, right ear; I10 Essential (primary) hypertension; K21.9 Gastro-esophageal reflux disease without esophagitis; F79 Unspecified intellectual disabilities; R93.0 Abnormal findings on diagnostic imaging of skull and head, not elsewhere classified; Z86.16 Personal history of COVID-19; Z99.3 Dependence on wheelchair; Z79.82 Long term (current) use of aspirin; Z79.899 Other long term (current) drug therapy; Z88.0 Allergy status to penicillin; Z88.1 Allergy status to other antibiotic agents
CPT/HCPCS: 36415 ×3; 70450; 70544; 70553; 71045; 80048 ×2; 80053; 80164; 80305; 81001; 82140 ×2; 82550; 82948; 84443; 84484; 85025 ×3; 85610; 85730; 87040 ×2; 87426; 87804 ×2; 92610; 93005; 96361 ×2; 96372 ×2; 96374; 96376 ×2; 97161; 97530 ×2; 99285; A9579; G0378 ×55; G8981; G8982; G8983; J1650 ×2; J3490 ×4; J7030 ×2; U0003